=== PATIENT | female | born 2000 | race Caucasian/White ===

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

== ENCOUNTER 2021-03-26 17:00 | Inpatient (IN) | payer OTHER ==
[~2021-03-26] VITALS: Ht 165.1 cm; Wt 98.0 kg
[~2021-03-26 17:00] MED LIST changes: -DESMOPRESSIN A0.1 M1 PO
[2021-03-26 18:12] LABS: HEMOGLOBIN 12.4 gm/dl (12.3-15.3); RED BLOOD COUNT 4.29 M/UL (4.00-5.10); WHITE BLOOD COUNT 8.6 K/UL (4.5-11.0)
[2021-03-26] MEDS ORDERED: FERROUS SULFAT325 M2 PO (23:31)
[2021-03-27 09:54] LABS: BUN/CREATININE RATIO 21 (0-10)
[2021-03-27] MEDS ORDERED: DESMOPRESSIN A0.2 MG PO (11:28)
[2021-03-27] MEDS ORDERED: IBUPROFEN800 MG PO (15:31)
[2021-03-27] MEDS ORDERED: COLACE100 MG PO (15:31)
[2021-03-27] MEDS ORDERED: HEMOCYTE324 MG PO (15:31)
[2021-03-27] MEDS ORDERED: PERCOCET 5/325 T1 EA PO (15:31)
== END 2021-03-29 13:09 | disposition home or self-care (01) | DRG 805 ==
LOC: GENOP 17:00 → OB 17:17 → 3 EAST 03-28 12:01
PROVIDERS: Obstetrics & Gynecology; ADMIT Obstetrics & Gynecology
PROC: 4A1HXCZ Monitoring of Products of Conception, Cardiac Rate, External Approach (ICD-10-PCS; 2021-03-26)
PROC: 10E0XZZ Delivery of Products of Conception, External Approach (ICD-10-PCS; principal; 2021-03-27)
PROC: 10907ZC Drainage of Amniotic Fluid, Therapeutic from Products of Conception, Via Natural or Artificial Opening (ICD-10-PCS; 2021-03-27)
PROC: 0W8NXZZ Division of Female Perineum, External Approach (ICD-10-PCS; 2021-03-27)
DX: O69.81X0 Labor and delivery complicated by cord around neck, without compression, not applicable or unspecified (principal); U07.1 COVID-19; Z37.0 Single live birth; O98.52 Other viral diseases complicating childbirth; E23.2 Diabetes insipidus; O99.214 Obesity complicating childbirth; Z3A.39 39 weeks gestation of pregnancy; E66.9 Obesity, unspecified; O24.92 Unspecified diabetes mellitus in childbirth; O70.9 Perineal laceration during delivery, unspecified; Z91.018 Allergy to other foods; Z87.891 Personal history of nicotine dependence; Z87.81 Personal history of (healed) traumatic fracture
CPT/HCPCS: 36415; 80053; 81001; 82962; 85014; 85018; 85025; 90715; J2590; J7120; Q0177; U0002